=== PATIENT | female | born 1965 | race Caucasian/White ===

== ENCOUNTER 2018-11-07 06:24 | Day surgery (SDC) | payer OTHER ==
[~2018-11-07] VITALS: Ht 157.5 cm; Wt 84.5 kg
[~2018-11-07 06:24] MED LIST: SODIUM CHLORIDE 0.9% 1,000 ML IV ONE
[2018-11-07] MEDS ORDERED: BENZOCAINE 20% 50 MCG/SPRAY 57 GM TP ONE (06:25)
[2018-11-07] MEDS ORDERED: ALBUTEROL SULFATE 2.5 MG/0.5 ML NEB SOLUTION NEB ONE (06:25)
[2018-11-07] MEDS ORDERED: LIDOCAINE 2% 5 ML JELLY TP ONE (06:25)
[2018-11-07] MEDS ORDERED: SODIUM CHLORIDE 0.9% 1,000 ML IV ONE (06:30)
[2018-11-07] MEDS ORDERED: METF-960 PO (06:59)
[2018-11-07] MEDS ORDERED: COMBISP IH (06:59)
[2018-11-07] MEDS ORDERED: BUDE10.2 IH (06:59)
[2018-11-07] MEDS ORDERED: GLYB2.5 PO (06:59)
[2018-11-07] MEDS ORDERED: FLUT16H NASAL (06:59)
[2018-11-07] MEDS ORDERED: MIDAZOLAM HCL 2 MG/2 ML VIAL ONE (07:35)
[2018-11-07] MEDS ORDERED: FentaNYL CITRATE-PF 100 MCG/2 ML VIAL ONE (07:35)
[2018-11-07] MEDS ORDERED: MethylPREDNISolone SOD SUCC 125 MG/2 ML VIAL IVP ONE (09:00)
[2018-11-07 09:01] LABS: GLUCOMETER DEV NAME(LOC) SDS.; GLUCOSE,POINT OF CARE 172 MG/DL (70-110)
[2018-11-07] MEDS ORDERED: MethylPREDNISolone SOD SUCC 125 MG/2 ML VIAL ONE (09:14)
[2018-11-07] MEDS ORDERED: OXYGEN THERAPY IH SCH (20:00)
== END 2018-11-07 10:25 | disposition home or self-care (01) ==
LOC: SURGERY 06:24
PROVIDERS: ATTEND Internal Medicine Critical Care Medicine
DX: J38.4 Edema of larynx (principal); B37.0 Candidal stomatitis; J45.909 Unspecified asthma, uncomplicated; J98.8 Other specified respiratory disorders; E11.9 Type 2 diabetes mellitus without complications; Z79.899 Other long term (current) drug therapy; Z98.890 Other specified postprocedural states
CPT/HCPCS: 31623; 31624; 71045; 82962; 87015; 87070; 87077; 87101; 87186; 87205; 87206; 87220; 88108; 88312; J2250; J2930; J3010; J7030